=== PATIENT | female | born 1980 | race Caucasian/White ===

== ENCOUNTER 2018-04-30 18:09 | Emergency (ER) | payer OTHER ==
[~2018-04-30] VITALS: Ht 167.6 cm; Wt 117.9 kg
[2018-04-30] MEDS ORDERED: BENZOCAINE 20% SPRAY 0.5ML TP ONE (19:00)
[2018-04-30] MEDS ORDERED: MORPHINE SULFATE 4 MG/ML, 1ML IVPush PRN (19:00)
[2018-04-30] MEDS ORDERED: DEXAMETHASONE 4 MG/ML, 1ML IV ONE (19:00)
[2018-04-30] MEDS ORDERED: SODIUM CHLORIDE FLUSH 10ML SYR IVF ONE (19:00)
[2018-04-30] MEDS ORDERED: ONDANSETRON ODT 4 MG PO ONE (19:00)
[2018-04-30] MEDS ORDERED: LIDOCAINE 2%, 20ML SQ ONE (19:00)
[2018-04-30] MEDS ORDERED: AMPICILLIN/SULBACTAM 3 GM in SODIUM CHLORIDE 0.9% 100 ML IV ONE (19:00)
[2018-04-30 19:37] LABS: BASOPHILS # (AUTO) 0.08 x10^3/uL (0-0.1); BASOPHILS % (AUTO) 1 % (0-1); EOSINOPHILS # (AUTO) 0.46 x10^3/uL (0-0.4); EOSINOPHILS % (AUTO) 5 % (1-7); LYMPHOCYTES # (AUTO) 3.58 x10^3/uL (1-3.4); LYMPHOCYTES % (AUTO) 39 % (22-44); MD NO; MEAN CORPUSCULAR HEMOGLOBIN 31.6 pg (27.0-34.8); MEAN CORPUSCULAR HGB CONC 33.8 g/dL (32.4-35.8); MEAN CORPUSCULAR VOLUME 93.4 fL (80-100); MEAN PLATELET VOLUME 7.4 fL (7.4-10.4); MONOCYTES # (AUTO) 0.92 x10^3/uL (0.2-0.8); MONOCYTES % (AUTO) 10 % (2-9); NEUTROPHILS # (AUTO) 4.25 x10^3/uL (1.8-6.8); NEUTROPHILS % (AUTO) 46 % (42-75); PLATELET COUNT 278 x10^3/uL (130-400); RED BLOOD COUNT 4.68 x10^6/uL (3.82-5.3); RED CELL DISTRIBUTION WIDTH 14.1 % (9.6-15.2)
[2018-04-30] MEDS ORDERED: BENZOCAINE 20% SPRAY 0.5ML ONE (19:37)
[2018-04-30] MEDS ORDERED: LIDOCAINE-MPF 2% ,5ML ONE (19:37)
[2018-04-30] MEDS ORDERED: ONDANSETRON 2MG/ML, 2ML ONE (19:37)
[2018-04-30] MEDS ORDERED: DEXAMETHASONE 4 MG/ML, 5ML ONE (19:38)
[2018-04-30] MEDS ORDERED: MORPHINE SULFATE 4 MG/ML, 1ML ONE (19:38)
[2018-04-30] MEDS ORDERED: ONDANSETRON ODT 4 MG ONE (19:39)
[2018-04-30 19:45] LABS: ANION GAP 7 mmol/L (5-15); CALCIUM 8.9 mg/dL (8.5-10.1); CHLORIDE 110 mmol/L (98-107)
[2018-04-30 20:41] VITALS: BP 145/90
== END 2018-04-30 21:28 | disposition home or self-care (01) ==
LOC: ED 21:05
DX: J02.0 Streptococcal pharyngitis (principal); J36 Peritonsillar abscess
CPT/HCPCS: 36415; 70491; 80048; 85025; 96374; 96375; 99285; J1100; Q0162